=== PATIENT | male | born 1985 | race Caucasian/White ===

== ENCOUNTER 2024-01-06 10:26 | Emergency (ER) | payer SELFPAY, OTHER ==
[2024-01-06] MEDS ORDERED: Ketorolac Tromethamine 30 MG (1 mL) VIAL ONE (10:51)
== END 2024-01-06 10:58 | disposition home or self-care (01) ==
LOC: CSHERS 10:26
DX: M53.3 Sacrococcygeal disorders, not elsewhere classified (principal)
CPT/HCPCS: 96372; 99283; J1885